=== PATIENT | male | born 1935 | race Caucasian/White ===

== ENCOUNTER 2024-08-25 16:03 | Emergency (ER) | payer OTHER, SELFPAY ==
[2024-08-25 16:10] VITALS: BP 131/87
[2024-08-25 18:17] VITALS: BP 91/66
[2024-08-25 19:00] VITALS: BP 107/46
--- NOTE | 2024-08-25 19:39 | ED.GENMED ---
History of Present Illness
General
Chief Complaint: Back Pain
Source: patient and spouse
Exam Limitations: none
Time Seen by Provider: 08/25/24 19:29
History of Present Illness
History of Present Illness:
See MDM
Past History
Past History
ED Past Medical History: Arrthythmia (atrial fibrillation), CAD, CVA (acute right occipital, right thalamus ischemic stroke in 2017), HTN, Hypercholesterolemia, CA (N STEMI two), Hypothyroidism and Other (emphysema); Negative NIDDM (hyperglycemia)
or Renal failure (chronic renal insufficiency stage II)
ED Past Surgical History: Cardiac (CABG times 3) and Orthopedic (right ORIF)
Social History
Tobacco: Non-smoker
Alcohol: None
Drug: None
Personal:
Living: with family
Employment: Retired
Family History
Family History: Other (reviewed and noncontributory)
Phy Exam
Physical Exam
Physical Exam:
See MDM
Course
Orders/Labs/Results
Orders:
Orders
08/25/24 19:38
Morphine Sulfate 4 mg IV NOW STA
Lumbar Spine, 2 or 3 View [CR Lumbar Spine 2 Or 3 Views] Urgent
Comment:
Reason For Exam: fall, low back pain
Pelvis, 1 or 2 Views CR [CR Pelvis - 1 Or 2 Views ] Urgent
Comment:
Reason For Exam: fall, buttock pain
08/25/24 19:54
Complete Blood Count/With Diff Urgent
Comprehensive Metabolic Panel Urgent
Urinalysis Reflex To Culture Urgent
Date Specimen was Collected: 08/25/24
Time Specimen was Collected: 19:53
Urine Microscopic Reflex Cult Urgent
Urine Culture Urgent
BARBRA Source: U
Specimen Description:
Date Specimen was Collected: 08/25/24
Time Specimen was Collected: 19:53
Abnormal Lab Results
08/25/24
19:54
RBC 4.28 L 10^6/uL
(4.70-6.10)
MCH 32.0 H pg
(27.0-31.0)
Absolute Monos (auto) 0.9 H 10^3/uL
(0.1-0.6)
Monocytes % 9.6 H %
(1.7-9.3)
BUN 21 H mg/dl
(9-20)
Glucose 102 H mg/dl
(70-99)
Alkaline Phosphatase 185 H U/L
(38-126)
Urine Urobilinogen 2+ A
(Neg - 1+)
Leukocyte Esterase Rfl 1+ A
(Negative)
08/25/24 19:54
08/25/24 19:54
Vital Signs
Initial and Last Documented VS:
Initial Vital Signs
Temp Pulse Resp BP Pulse Ox
98.3 F 71 16 131/87 99
08/25/24 16:10 08/25/24 16:10 08/25/24 16:10 08/25/24 16:10 08/25/24 16:10
Last Documented Vital Signs
Temp Pulse Resp BP Pulse Ox
98.3 F 71 16 91/66 94
08/25/24 16:10 08/25/24 16:10 08/25/24 16:10 08/25/24 18:17 08/25/24 18:45
MDM/Problems Addressed
Differential Diagnosis Includes:
HPI and MDM Narrative:
89-year-old male presenting with low back pain. Patient had a trip and fall while doing yard work 2 weeks ago. Since then, he has been complaining of back pain. He had leftover oxycodone from a prior injury. He states that is helping. Due to
the persistent pain, he finally followed up with pain management today. His states that pain management convinced him to go to the emergency department for evaluation. Patient denies numbness or tingling. He denies urinary issues
On exam, patient does have mild tenderness around L2. He states he has a history of compression fractures. Nursing staff indicating that he is able to get out of bed and walk around. Will obtain x-rays
Physical exam
General: Well appearing and non-toxic
HEENT: protecting airway
Neck: appears supple
CV: No evidence of cyanosis
Resp: No accessory muscle use
Abd: Non-distended. No tenderness
Back: Mild tenderness around L2. No skin changes
Extremities: No deformities. Both extremities neurovascularly intact
Neuro: alert
Psych: Normal affect
Skin: Intact
Problems Addressed including Acute and Chronic Conditions affecting care:
1. Back pain
Acuity: acute on chronic
Prognosis: stable
Details: Will obtain x-ray. No red flags to suggest cauda equina
Updates
X-ray consistent with expected compression fractures. I did offer admission for case management and PT evaluation for possible rehab. Patient declined and states he wants to go home
Differential Diagnosis (but not limited to): Back spasm, compression fracture
Testing considered: CT abdomen/pelvis but there is no abdominal tenderness noted
Drug therapy (if applicable): OTC meds, please see d/c instruction regarding Rx drugs
Amount and/or Complexity of Data Reviewed
Clinical info obtained from: Patient
External data reviewed: N/A
Labs I independently reviewed (but not limited to): White blood cell count normal, electrolytes normal
Radiology: X-ray independently reviewed: Lumbar x-ray consistent with compression fractures
Pulse Ox: not hypoxic
EKG independently reviewed: N/A
Pulmonary Function Technician: N/A
Critical Care: N/A
Risk of Complication:
Social Determinants of health: Good social support
Discussed with other providers: N/A
Escalation of Care includes Admit/Obs: After being observed in the Emergency Department, pt stable for discharge.
Occasional wrong word or 'sound a like' substitutions may have occurred due to the inherent limitations of voice recognition software. Read the chart carefully and recognize, using context, where substitutions have occurred.
*Critical Care Note
Total Time (30-74mins, 75-104mins- exclusive of procedures): Not Applicable
ED Attending Note
-
Portions of this chart may have been created with voice recognition software.� Occasional wrong word or��sound alike� substitutions may have occurred due to the inherent limitations of voice recognition software.
Discharge Plan
Departure
Patient Disposition: Home (Routine Discharge)
Date of Disposition: 08/25/24
Time of Disposition: 20:31
Patient with high blood pressure during this ER visit?: No
Discharge Problem:
Compression fracture of lumbar vertebra
Instructions: Vertebral Compression Fracture ED
Prescriptions:
New
oxycodone 5 mg tablet
5 mg PO Q8H PRN (Reason: Pain) Qty: 10 0RF
No Action
levothyroxine 100 MCG tablet
150 tab PO DAILY
multivitamin with folic acid [Tab-A-Jeanette] 1 TABLET tablet
1 tab PO DAILY
Super Beta Prostate
1 tab PO QPM
eplerenone 25 MG tablet
25 mg PO DAILY
coenzyme [id number] [Co Q-10 (with Vit E)] 1 EACH capsule
1 ea PO DAILY
atorvastatin 40 MG tablet
40 mg PO QPM
metoprolol succinate 50 MG tablet extended release 24 hr
75 mg PO DAILY
lisinopril-hydrochlorothiazide 1 EACH tablet
1 ea PO DAILY
cholecalciferol (vitamin D3) 1,000 UNITS tablet
1,000 units PO DAILY
oxycodone 5 MG tablet
5 mg PO Q8HPRN PRN (Reason: pain) 3 Days Qty: 9 0RF
lidocaine [Aspercreme (lidocaine)] 1 PATCH adhesive patch,medicated
1 patch S DAILY PRN (Reason: back pain) 10 Days Qty: 10 0RF
Rx Instructions:
leave on for 12 hours, remove for 12 hours as needed for back pain
oxycodone 5 MG tablet
5 mg PO Q8HPRN PRN (Reason: back pain) 3 Days Qty: 9 0RF
docusate sodium [Colace] 100 MG capsule
100 mg PO TID Qty: 30 0RF
apixaban [Eliquis] 5 MG tablet
5 mg PO BID Qty: 60 0RF
Referrals:
UNKNOWN - PT DOES,NOT KNOW [Family Provider] -
Activity Restrictions/Additional Instructions:
Please return for any worsening symptoms.
You may return at any time if you have further concerns.
Please follow up with your doctor at the first available appointment, preferably this week.
You were given a prescription for narcotics. If you require this pain medicine, please take a daily [id number] stool softener to avoid constipation.
Please start taking an utkl-rma-sofvyop stool softener such as Colace. You would also benefit from a few days of a laxative such as MiraLAX.
Thank you for choosing [facility].
Interventions
Interventions:
*Risk Screen - Suicide Last Done: 08/25/24 16:13
*Neglect/Abuse Screening Last Done: 08/25/24 16:13
ED-Musculoskeletal Assessment Last Done: 08/25/24 18:35
Discharge Date and Time
Print Language: UKRAINIAN
[2024-08-25] MEDS: MORPHINE SULFATE 4 MG IV (19:58)
[2024-08-25 20:00] VITALS: BP 102/74
[2024-08-25 20:04] LABS: % Basophils 0.4 % (0-2); % Eosinophils 1.6 % (0-6); % Immature Granulocytes 0.3 % (0-0.5); % Lymphocytes 21.1 % (20.5-51.1); % Monocytes 9.6 % (1.7-9.3); Absolute Eosinophils 0.1 10^3/uL (0-0.7); Absolute Lymphocytes 1.9 10^3/uL (1.2-3.4); Absolute Monocytes 0.9 10^3/uL (0.1-0.6); Hematocrit 39.6 % (39.0-52.0); Hemoglobin 13.7 g/dL (13.0-18.0); Mean Corp Hgb Conc. 34.6 g/dL (33.0-37.0); Mean Corpuscular Volume 92.5 fL (80.0-94.0); Mean Platelet Volume 9.2 fL (7.4-10.4); Nucleated Red Blood Cells % 0 % (-); Platelet Count 225 10^3/uL (130-400); Red Blood Cell Count 4.28 10^6/uL (4.70-6.10); Red Cell Dist. Width 13.1 % (11.5-14.5); White Blood Cell Count 8.9 10^3/uL (4.8-10.8)
[2024-08-25 20:10] LABS: Urine Albumin Trace (Neg - Trace); Urine Bilirubin Negative (Negative); Urine Character Clear (Clear); Urine Color Yellow; Urine Glucose Negative (Negative); Urine Ketone Negative (Negative); Urine Leukocyte 1+ (Negative); Urine Nitrite Negative (Negative); Urine Occult Blood Negative (Negative); Urine Urobilinogen 2+ (Neg - 1+)
[2024-08-25 20:23] LABS: ALT (SGPT) 29 U/L (0-50); AST (SGOT) 32 U/L (17-59); Albumin 3.8 g/dl (3.5-5.0); Alkaline Phosphatase 185 U/L (38-126); Blood Urea Nitrogen 21 mg/dl (9-20); Calcium 9.5 mg/dl (8.4-10.2); Carbon Dioxide 27 mmol/L (22-30); Chloride 104 mmol/L (98-107); Glucose 102 mg/dl (70-99); Potassium 3.9 mmol/L (3.5-5.1); Sodium 141 mmol/L (135-145); Total Bilirubin 0.8 mg/dl (0.2-1.3); Total Protein 6.8 g/dl (6.3-8.2); eGFR > 60.00
[2024-08-25 20:29] LABS: Urine Calcium Oxalate Crystals Present; Urine Hyaline Cast 0-2 /LPF (0-2); Urine Mucus Few; Urine Squamous Cell 0-2 /LPF (Few)
[2024-08-25 20:30] LABS: Urine Red Blood Cell 0-2 /HPF (0-2)
[2024-08-25] MEDS: ROXICODONE 5 MG PO (20:51)
== END 2024-08-25 22:08 | disposition home or self-care (01) ==
LOC: EMR 16:03
PROVIDERS: EMERGENCY PHYSICIAN Student in an Organized Health Care Education/Training Program
DX: S32.020A Wedge compression fracture of second lumbar vertebra, initial encounter for closed fracture (principal); S32.030A Wedge compression fracture of third lumbar vertebra, initial encounter for closed fracture; W01.0XXA Fall on same level from slipping, tripping and stumbling without subsequent striking against object, initial encounter
CPT/HCPCS: 99284; 96374; 72100; 72170; 80053; 81003; 81015; 85025; 87086